=== PATIENT | male | born 1935 | race Caucasian/White ===

== ENCOUNTER 2017-01-26 00:07 | Day surgery (SDC) | payer MEDICARE ==
[2017-01-26] VITALS (11 sets, daily range): BP systolic 116–153; BP diastolic 48–103; PULSE 41–63; RESP 13–19; O2SAT 99–100
[~2017-01-26] VITALS: Ht 162.6 cm; Wt 66.0 kg
[~2017-01-26 00:07] MED LIST: ATOR40TA69 PO; CHOL100043 PO; DPAS20025 PO; FINA5TAB9 PO; MULT-1074 PO; NAPR220C11 PO; OMEP20TA24 PO
[2017-01-26] MEDS ORDERED: Heparin 1,000 Units/500 mL NS Premix IV ONE (06:00)
--- NOTE | 2017-01-26 06:00 | NUR ---
ADMISSION NOTE MALE PT ADMITTED FOR ABLATION. DISCUSSED PLAN OF CARE WITH PT AND FAMILY. SEE ADMIT AND FLOW SHEET
[2017-01-26] MEDS ORDERED: 0.9% Sodium Chloride 1,000 ML IV SCH (06:15)
[2017-01-26 07:47] LABS: INR 0.93 ratio
[2017-01-26 07:59] LABS: Mean Corpuscular Hemoglobin 28.2 pg (27.0-35.0); Mean Corpuscular Volume 85.8 fL (81-100)
[2017-01-26 08:00] LABS: BASOPHILS % (AUTO) 0.7 % (0-3); EOSINOPHILS % (AUTO) 1.1 % (0-5); NEUTROPHILS % (AUTO) 57.1 % (40-74); Platelet Count 189 bil/L (150-400)
[2017-01-26] MEDS ORDERED: fentaNYL-PF 50 mCg/mL 2 mL Inj ONE (08:28)
[2017-01-26] MEDS ORDERED: Heparin 10,000 Unit/1,000 mL NS Premix IV ONE (08:28)
[2017-01-26] MEDS ORDERED: DOPamine 800 mg/250 mL D5W Premix IV ONE (09:49)
[2017-01-26] MEDS ORDERED: HYDROcodone-APAP 5-325 mg Tablet PO PRN (10:35)
[2017-01-26] MEDS ORDERED: Ondansetron 2 mg/mL 2 mL Inj IVPUSH PRN (10:35)
--- NOTE | 2017-01-26 13:17 | PROCED ---
[address] [address] PROCEDURE NOTE PATIENT: SHAWN VIRAMONTES : 1935 MR#: [id number] ADMIT: 01/26/2017 JOB ID: [id number] DATE OF SERVICE: 01/26/2017 PREOPERATIVE DIAGNOSIS(ES): Paroxysmal drug refractory supraventricular tachycardia. 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 PROCEDURES PERFORMED: 1. Comprehensive electrophysiology study with left atrial pacing and recording via the coronary sinus catheter. 2. Three-dimensional electroanatomic mapping using the CARTO 3 system. 3. Supraventricular tachycardia ablation (slow pathway modification). 4. Fluoroscopy. SURGEON: Truck Spotter: Herbert Stark MD, electrophysiology attending [employer] CONSULTANT: Meghan Christianson. ANESTHESIA: Gentle dosing of Versed and fentanyl was utilized for an appropriate level of sedation. INDICATION FOR PROCEDURE: The patient is a pleasant 81-year-old man with recurrent drug refractory supraventricular tachycardia. After discussion of the risks and benefits of catheter based mapping and ablation, he opted to proceed. PROCEDURAL DESCRIPTION: Following informed consent, the patient was taken to the EP laboratory in the fasting nonsedated state where he was prepped and draped in the usual sterile fashion. The bilateral groins were infiltrated with 1% lidocaine; then, using modified Seldinger technique, two 6-Occitan sheaths were inserted into the left femoral vein and a 7- and an 8-Occitan sheath were inserted into the right femoral vein. Under fluoroscopic guidance, a deflectable decapolar catheter was advanced to the coronary sinus with the most proximal bipoles at the os of the sinus. A CRD 2 catheter was advanced to the His position and a Gloria quadripolar catheter was advanced to the RV apex. A comprehensive electrophysiology study was undertaken with right atrial pacing and recording, right ventricular pacing and recording, His bundle recording, left atrial pacing and recording via the coronary sinus catheter. Retrograde conduction showed a concentric atrial activation pattern. Antegrade conduction showed an antegrade jump, ultimately initiation of the patient's clinical tachycardia. This was a regular narrow tachycardia initiated with an antegrade jump with a VA time of 0 msec consistent with AV roxana reentry tachycardia. We therefore prepared for slow pathway modification. A 4 mm F curve non-irrigated ablation catheter was brought to the field and used to create a three-dimensional anatomic map of the right atrium, tricuspid anulus, and the triangle of Mcdaniel. Ablation lesions were placed at the base of the triangle of Mcdaniel near the region of the slow pathway, with the ending ablations leading to conducted junctional beats. Programmed extra stimulation was then undertaken from the coronary sinus catheter showing an antegrade jump but no echoes and no sustained tachycardias. We therefore concluded our procedure. All catheters and sheaths were removed. Manual pressure was held for hemostasis. The patient was transferred to the [facility] for monitoring, bedrest, and discharge. Of note the patient, when he was on isoproterenol at 1 mcg/minute, had a hypotensive response with systolic blood pressures in the 60s. Isoproterenol was stopped, IV fluid was infused, and the patient's blood pressure rebounded to normal limits. An echocardiogram was done bedside and showed no evidence of pericardial effusion. COMPLICATIONS: None. ESTIMATED BLOOD LOSS: Negligible. FINDINGS: 1. Baseline rhythm is sinus with an RR interval of 1046 msec, [place] 172 msec, QRS 112 msec, QT 371 msec. 2. Intracardiac intervals: AH interval 102 msec, HV 51 msec. Post ablation those intervals are 110 msec and 53 msec respectively. 3. Retrograde conduction: VA Wenckebach 540 msec. Atrial activation is concentric. 4. Antegrade conduction: Dual AV roxana physiology is noted. 5. 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 While there is an antegrade jump, there are no echoes and no sustained tachycardia. IMPRESSION: Successful slow pathway modification for AV roxana reentrant tachycardia. PLAN: 1. Bed rest x4 hours. 2. Aspirin daily for one month. 3. Follow up with Dmitriy Henderson PA-C in clinic in 3-4 weeks. ATTENDING STATEMENT: Herbert Stark MD, electrophysiology attending, was present for and supervised/performed all aspects of this procedure.
--- NOTE | 2017-01-26 15:30 | NUR ---
DISCHARGE NOTE UP IN ROOM, NO COMPLAINTS. DRESSINGS CHANGED. INSTRUCTIONS GIVEN. HOME WITH AND SISTER
== END 2017-01-26 23:59 | disposition home or self-care (01) ==
LOC: SOUO 00:07
PROVIDERS: ATTEND Internal Medicine Cardiovascular Disease
DX: I47.1 Supraventricular tachycardia (principal); I44.4 Left anterior fascicular block; I10 Essential (primary) hypertension; N40.1 Benign prostatic hyperplasia with lower urinary tract symptoms; R39.198 Other difficulties with micturition; Z86.73 Personal history of transient ischemic attack (TIA), and cerebral infarction without residual deficits; Z72.0 Tobacco use
CPT/HCPCS: 36415; 80048; 85025; 85610; 93005; 93613; 93621; 93653; 99152; 99153; C1730; C1732; J1644; J2250; J3010